=== PATIENT | male | born 1980 | race African-American/Black ===

== ENCOUNTER 2024-02-04 01:59 | Emergency (ER) | payer MEDICAID ==
[2024-02-04 02:08] VITALS: PULSE 100; RESP 16; O2SAT 100
== END 2024-02-04 03:13 | disposition left against medical advice (07) ==
LOC: ER 01:59
DX: S61.215A Laceration without foreign body of left ring finger without damage to nail, initial encounter (principal); Z53.21 Procedure and treatment not carried out due to patient leaving prior to being seen by health care provider; X58.XXXA Exposure to other specified factors, initial encounter; Y93.89 Activity, other specified; Y92.89 Other specified places as the place of occurrence of the external cause; Y99.8 Other external cause status

== ENCOUNTER 2024-03-16 03:23 | Emergency (ER) | payer MEDICAID ==
[~2024-03-16] VITALS: Ht 170.2 cm; Wt 86.0 kg
[2024-03-16 03:34] VITALS: BP 151/89; PULSE 84; RESP 16; TEMP 98.2; O2SAT 98
== END 2024-03-16 05:54 ==
LOC: ER 03:36
DX: T63.301A Toxic effect of unspecified spider venom, accidental (unintentional), initial encounter (principal); Z53.21 Procedure and treatment not carried out due to patient leaving prior to being seen by health care provider; Y92.89 Other specified places as the place of occurrence of the external cause

== ENCOUNTER 2024-04-10 21:13 | Emergency (ER) | payer MEDICAID ==
[~2024-04-10] VITALS: Ht 177.8 cm; Wt 83.0 kg
[2024-04-10 21:16] VITALS: O2SAT 97
[2024-04-10] MEDS: ACETAMINOPHEN 325MG TABLET PO ONE (21:45)
[2024-04-10 22:48] LABS: BASOPHILS % 0.2 % (0.0-2.0); DIFFERENTIAL COMMENT 0; EOSINOPHILS % 0.5 % (0.0-5.0); HEMATOCRIT. 40.5 % (42.0-52.0); HEMOGLOBIN. 13.9 g/dL (14.0-18.0); LYMPHOCYTES % 7.6 % (20.0-50.0); MEAN CORPUSCULAR HEMOGLOBIN 34.6 pg (28.0-32.0); MEAN CORPUSCULAR HGB CONC 34.3 g/dL (31.0-37.0); MEAN PLATELET VOLUME 7.3 fl (7.4-10.4); MONOCYTES % 5.5 % (2.0-8.0); NEUTROPHILS % 86.2 % (40.0-76.0); PLATELET 276 x1000/uL (130-400); RED BLOOD CELL COUNT 4.01 mill/uL (4.7-6.1); RED CELL DISTRIBUTION WIDTH 11.7 % (11.6-14.6); WHITE BLOOD COUNT 9.5 x1000/uL (4.5-11.0)
[2024-04-10 22:54] LABS: CHLORIDE 108 mEq/L (98-107); POTASSIUM 4.2 mEq/L (3.5-5.1); SODIUM 138 mEq/L (136-145)
[2024-04-10 22:55] LABS: CALCIUM 8.9 mg/dL (8.7-10.4); CARBON DIOXIDE 23 mEq/L (21-32)
[2024-04-10 23:00] LABS: GLUCOSE 114 mg/dL (70-105); UREA NITROGEN BLOOD 11 mg/dL (9-23)
[2024-04-10 23:01] LABS: ETHANOL BLOOD < 10 mg/dL (<10)
[2024-04-10 23:04] LABS: TROPONIN I HIGH SENSITIVITY < 4 ng/L (3.0-53)
[2024-04-11] MEDS ORDERED: NAPR-681 MT (00:03)
[2024-04-11 01:04] LABS: TROPONIN I HIGH SENSITIVITY < 4 ng/L (3.0-53)
[2024-04-11] MEDS: KETOROLAC 30MG/ML VIAL IM ONE (03:21)
[2024-04-11] MEDS: LIDOCAINE 5% PATCH TOP SCH (03:30)
[2024-04-11 03:45] VITALS: BP 125/76; PULSE 89; RESP 16; TEMP 36.7; O2SAT 98
== END 2024-04-11 03:50 | disposition home or self-care (01) ==
LOC: ER 21:13
DX: R07.81 Pleurodynia (principal)
CPT/HCPCS: 80048; 80320; 85025; 84484 ×2; 36415; 71111; 93005; 99285; 96372; J1885; G0480

== ENCOUNTER 2024-04-11 06:38 | Emergency (ER) | payer MEDICAID ==
[~2024-04-11] VITALS: Ht 170.2 cm; Wt 87.1 kg
[~2024-04-11 06:38] MED LIST: NAPR-681 MT
[2024-04-11 06:46] VITALS: O2SAT 96
[2024-04-11 07:17] VITALS: BP 125/83; PULSE 75; RESP 16; TEMP 36.7; O2SAT 98
== END 2024-04-11 08:21 | disposition home or self-care (01) ==
LOC: ER 06:50
DX: Z13.89 Encounter for screening for other disorder (principal); Z59.00 Homelessness unspecified; Z79.1 Long term (current) use of non-steroidal anti-inflammatories (NSAID)
CPT/HCPCS: 99281